=== PATIENT | male | born 1985 | race Two or more races ===

== ENCOUNTER 2025-04-01 21:44 | Emergency (ER) | payer MEDICAID, OTHER ==
[~2025-04-01] VITALS: Ht 172.7 cm; Wt 92.5 kg
--- NOTE | 2025-04-01 22:17 | ED.PDOC ---
History of Present Illness HPI Comments 39 y/o obese M presents with c/c of nonproductive cough x1 month. Chief Complaint: Cough Time Seen by MD: 22:01 Reviewed Notes: Nurses Notes, Medications, Allergies Allergies: Coded Allergies: NO KNOWN ALLERGIES (Unverified , 04/01/25) Information Source: Patient Mode of Arrival: Ambulatory Severity: Moderate Timing: Weeks Duration: Since onset Prehospital treatment: None Past Medical History PAST MEDICAL HISTORY: Denies Surgical History: Denies all surgeries Social History Smoker: Non-Smoker Alcohol: Denies ETOH Use Drugs: Denies Drug Use Lives In: Home All Other Systems: Reviewed and Negative (As per HPI) Physical Exam General Appearance: No Apparent Distress, Obese HEENT: Normal ENT Inspection, Pharynx Normal, TMs Normal Neck: Full Range of Motion, Non-Tender Respiratory: Chest Non-Tender, Decreased Breath Sounds, No Respiratory Distress Cardiovascular: No Edema, No JVD, No Murmur, No Gallop, Normal Peripheral Pulses, Regular Rate/Rhythm Breast Exam: Deferred Gastrointestinal: No Organomegaly, Non Tender, No Pulsatile Mass, Normal Bowel Sounds, Soft Genitalia: Deferred Pelvic: Deferred Rectal: Deferred Extremities: Normal capillary refill, Normal inspection, Normal range of motion, Non-tender, No pedal edema Musculoskeletal : Apperance: Normal Neurologic: Alert, No Motor Deficits, Normal Affect, Normal Mood, No Sensory Deficits Cerebellar Function: Normal Reflexes: NOT DONE Skin: Dry, Normal Color, Warm Lymphatic: No Adenopathy Was a procedure done? Was a procedure done?: No Differential Dx Considerations may include: URI, PNA, bronchitis, Covid19, viral, among others X-Ray, Labs, Meds, VS Vital Signs Date Time Temp Pulse Resp B/P (MAP) Pulse Ox O2 Delivery O2 Flow Rate FiO2 04/01/25 21:53 98.3 80 18 128/98 98 98.3 X-Ray, Labs, Meds, VS Comment Chest x-ray shows no acute cardiopulmonary findings. It is likely bronchitis. Script trial of azithromycin and steroid. Along with some cough medicine. Advised to follow up with his PCP in 2-3 days if no improvement. ER return precautions given patient indicates understanding agrees with discharge plan of care. Images Reviewed?: Images reviewed and evaluated by me Time of 1ST Reevaluation: 22:01 Reevaluation 1ST: Unchanged Time of 2ND Reevaluation: 22:48 Reevaluation 2ND: Improved Patient Education/Counseling: Diagnosis, Treatment, Need For Follow Up Family Education/Counseling: No Family Present SEPSIS Sepsis Screen Date sepsis recognized/suspect: Apr 01, 2025 Time Sepsis recognized/suspect: 2154 Recent Procedure: No On Antibiotic Therapy: No Respiratory Rate >20: No Heart Rate >90: No Temp<36 C (96.8 F) or >38.3 C: No SBP <90 or MAP <65 mmHG: No New Acute Mental Status Change: No Is the patient on CPAP, BIPAP,: No Physician Orders Chest Two Views Routine (04/01/25 22:02) Vital Signs Date Time Temp Pulse Resp B/P (MAP) Pulse Ox O2 Delivery O2 Flow Rate FiO2 04/01/25 21:53 98.3 80 18 128/98 98 98.3 Departure 1 Departure Time of Disposition: 22:46 Impression: Primary Impression: Bronchitis Disposition: 01 HOME / SELF CARE / HOMELESS Condition: Stable e-Prescriptions Methylprednisolone (Medrol Dosepak) 4 Mg Kenneth 4 MG PO UD for 6 Days, #21 TAB UAD Prov: PEPPER CHRISTOPHERP 04/01/25 Albuterol Sulfate (VENTOLIN MDI) 90 Mcg Ih 90 MCG IN Q6HP PRN for 14 Days, #1 INHALER Prov: PEPPER CHRISTOPHER 04/01/25 Azithromycin (Azithromycin) 250 Mg Tab 250 MG PO DAILY MDD 500 for 5 Days, #6 TAB 0 Refills 2 TABLETS ORALLY ON DAY ONE, THEN 1 TABLET ORALLY DAILY FOR 4 DAYS Prov: PEPPER CHRISTOPHER 04/01/25 Discharged With: Self Critical Care Note Critical Care Time?: No Stability Stability form required: No Heart Score Heart Score: Heart Score Response (Comments) Value History N/A 0 EKG N/A 0 Age N/A 0 Risk Factors N/A 0 Troponin N/A 0 Total 0 I personally scribed for ER ([email or web address]) on 04/01/25 at 22:16. Electronically submitted by Nomi Christie ([email or web address]). ER Apr 01, 2025 22:16 PEPPER CHRISTOPHER Apr 01, 2025 22:52
--- NOTE | 2025-04-01 22:20 | DVH ---
CHEST RADIOGRAPH Indication: COUGH SHORTNESS OF BREATH Technique: Frontal and lateral view of the chest was obtained Comparison: None FINDINGS: Lines and Tubes: None Lungs: Clear Pleura: No pleural effusion or pneumothorax. Cardiomediastinal contours: Unremarkable IMPRESSION: No abnormality.
[2025-04-01] MEDS ORDERED: AZIT-43 PO (22:52)
[2025-04-01] MEDS ORDERED: ALBUAER3 IN (22:52)
[2025-04-01] MEDS ORDERED: METH4PAK PO (22:52)
[2025-04-01] MEDS ORDERED: PROM1SOL4 PO (22:54)
[2025-04-01] MEDS: predniSONE 20 MG TAB PO ONE (23:14)
[2025-04-01] MEDS: PROMETHAZINE W/CODEINE 5 ML ORAL SYRUP PO ONE (23:14)
[2025-04-01 23:18] VITALS: BP 111/71; PULSE 77; RESP 18; TEMP 98.2; O2SAT 97
== END 2025-04-01 23:23 | disposition home or self-care (01) ==
LOC: ER 21:44 → EDBD 21:44 → ER 23:23
DX: J40 Bronchitis, not specified as acute or chronic (principal); Z79.899 Other long term (current) drug therapy
CPT/HCPCS: 71046

== ENCOUNTER 2025-04-10 01:31 | Emergency (ER) | payer MEDICAID ==
[~2025-04-10] VITALS: Ht 172.7 cm; Wt 91.2 kg
[~2025-04-10 01:31] MED LIST: ALBUAER3 IN; AZIT-43 PO
--- NOTE | 2025-04-10 02:12 | ED.PDOC ---
History of Present Illness HPI Comments 39-year-old male who came to ER for chest pain. Patient has been having today nonproductive cough for the past 6 weeks, states cough is nocturnal and associated with throat pain, and for the past week has been having episodes of hemoptysis. Denies any fever. Earlier he started having substernal chest pains, tight, constant, non radiating. Patient was seen last week, prescribe azithromycin, steroids and inhalers but offered no relief REVIEW OF SYSTEMS: General: No fever, no chills, or fatigue HEENT: (+) sore throat, no earache, no congestion, no neck pain. Cardiac: (+) chest pain. No palpitations. Lungs: No shortness of breath, (+) cough. (+) hemoptysis GI: No nausea, no vomiting, no diarrhea, no constipation, no abdominal pain : No dysuria, frequency, or urgency. No hematuria. Musculoskeletal: No joint pain , no joint swelling, no extremity edema. Skin: No rash, no itching. Neuro: No headache, no dizziness, no weakness EXAM: General: Awake, alert and oriented. No acute distress. Skin: Skin in warm, dry and intact. Appropriate color for ethnicity. HEENT: The head is normocephalic and atraumatic. Conjunctivae are clear without exudates or hemorrhage. Sclera is non-icteric. EOM are intact. No signs of nystagmus. Eyelids are normal in appearance without swelling or lesions. Oral mucosa is pink and moist Neck: The neck is supple with normal range of motion. No JVD. Cardiac: Heart rate and rhythm are normal. No murmurs, gallops, or rubs are auscultated. Respiratory: No signs of respiratory distress. Lung sounds are clear in all lobes bilaterally without rales, rhonchi, or wheezes. Abdominal: Abdomen is soft, non-tender without distention. Bowel sounds are present and normoactive in all four quadrants. Extremities: Upper and lower extremities are atraumatic in appearance without deformity or edema. Neurological: The patient is awake, alert and oriented to person, place, and time with normal speech. Speech is clear. There is no facial asymmetry. Psychiatric: Appropriate mood and affect. Good judgement and insight Chief Complaint: Chest Pain Time Seen by MD: 02:11 Reviewed Notes: Nurses Notes Allergies: Coded Allergies: NO KNOWN ALLERGIES (Unverified , 04/01/25) Home Meds Active Scripts Albuterol Sulfate (VENTOLIN MDI) 90 Mcg Ih, 90 MCG IN Q6HP PRN for 14 Days, #1 INHALER Prov:[facility] 04/01/25 Azithromycin (Azithromycin) 250 Mg Tab, 250 MG PO DAILY MDD 500 for 5 Days, #6 TAB 0 Refills 2 TABLETS ORALLY ON DAY ONE, THEN 1 TABLET ORALLY DAILY FOR 4 DAYS Prov:PEPPER CHRISTOPHER [facility] 04/01/25 Discontinued Scripts Promethazine-Dm (Promethazine Dm 6.25-15 mg/5Ml) 1 Aniya Aniya, 5 ML PO TID for 7 Days, #100 ML Prov:PEPPER CHRITSOPHER [facility] 04/01/25 Methylprednisolone (Medrol Dosepak) 4 Mg Kenneth, 4 MG PO UD for 6 Days, #21 TAB UAD Prov:PEPPER CHRISTOPHERP 04/01/25 Information Source: Patient Mode of Arrival: Ambulatory Past Medical History PAST MEDICAL HISTORY: Denies Surgical History: Cholecystectomy Family History Family History: Reviewed,noncontributory to illness Social History Smoker: Non-Smoker, Quit Greater Than 1 Year Alcohol: Denies ETOH Use Drugs: Denies Drug Use Lives In: Home Was a procedure done? Was a procedure done?: No EKG EKG : Pulse Rate (adult): 65 Cardiac Rhythm: NSR Differential Dx Considerations may include: Upper respiratory infection, pneumonia, bronchitis, tuberculosis X-Ray, Labs, Meds, VS Vital Signs Date Time Temp Pulse Resp B/P (MAP) Pulse Ox O2 Delivery O2 Flow Rate FiO2 04/10/25 04:01 98.0 70 14 113/80 (91) 98 98.0 04/10/25 03:30 65 04/10/25 03:27 65 04/10/25 01:34 98.3 90 16 124/91 99 98.3 Lab Test 04/10/25 02:20 Range/Units White Blood Count 7.8 4.4-10.8 10^3/uL Red Blood Count 4.90 4.5-5.90 10^6/uL Hemoglobin 14.9 13.5-17.5 g/dL Hematocrit 43.9 41.0-53.0 % Mean Corpuscular Volume 89.6 80.0-100.0 fL Mean Corpuscular Hemoglobin 30.5 28.0-32.0 pg Mean Corpuscular Hemoglobin Concent 34.1 32.0-36.0 g/dL Red Cell Distribution Width 14.5 H 11.8-14.3 % Platelet Count 172 140-450 10^3/uL Mean Platelet Volume 8.3 6.9-10.8 fL Neutrophils (%) (Auto) 69.2 37.0-80.0 % Lymphocytes (%) (Auto) 22.2 10.0-50.0 % Monocytes (%) (Auto) 7.6 0.0-12.0 % Eosinophils (%) (Auto) 0.8 0.0-7.0 % Basophils (%) (Auto) 0.2 0.0-2.0 % Neutrophils # (Auto) 5.4 1.6-8.6 10 ^3/uL Lymphocytes # (Auto) 1.7 0.4-5.4 10 ^3/uL Monocytes # (Auto) 0.6 0-1.3 10 ^3/uL Eosinophils # (Auto) 0.1 0-0.8 10 ^3/uL Basophils # (Auto) 0 0-0.2 10 ^3/uL Nucleated Red Blood Cells 0.1 % Sodium Level 139 136-145 mmol/L Potassium Level 3.7 3.5-5.1 mmol/L Chloride Level 100 98-107 mmol/L Carbon Dioxide Level 29 20-31 mmol/L Anion Gap 10 5-15 Blood Urea Nitrogen 10 9-23 mg/dL Creatinine 0.97 0.700-1.30 mg/dL Glomerular Filtration Rate Calc 102 >90 mL/min BUN/Creatinine Ratio 10.3 10.0-20.0 Serum Glucose 96 74-106 mg/dL Calcium Level 9.5 8.7-10.4 mg/dL Troponin I High Sensitivity 4 </=54 ng/L Current Medications Medications (Trade) Dose Ordered Sig/Brian Route Start Time Stop Time Status Last Admin Ketorolac Tromethamine (Toradol Injection) 30 mg ONCE ONCE IM 04/10/25 02:00 04/10/25 02:03 DC 04/10/25 02:22 Tramadol HCl (Ultram) 50 mg ONCE ONCE PO 04/10/25 02:00 04/10/25 02:03 DC 04/10/25 02:22 Acetaminophen (Tylenol Tablet) 650 mg ONCE ONCE PO 04/10/25 02:00 04/10/25 02:03 DC 04/10/25 02:22 Time of 1ST Reevaluation: 02:00 Reevaluation 1ST: Unchanged Patient Education/Counseling: Need For Follow Up Family Education/Counseling: No Family Present SEPSIS Sepsis Screen Date sepsis recognized/suspect: Apr 10, 2025 Time Sepsis recognized/suspect: 013 Recent Procedure: No On Antibiotic Therapy: No Respiratory Rate >20: No Heart Rate >90: No Temp<36 C (96.8 F) or >38.3 C: No SBP <90 or MAP <65 mmHG: No New Acute Mental Status Change: No Is the patient on CPAP, BIPAP,: No Physician Orders Electrocardigram (04/10/25 01:44) Electrocardigram (04/10/25 02:44) Electrocardigram (04/10/25 04:44) Chest Without Contrast (04/10/25 01:58) Rapid Influenza A&B (04/10/25 01:58) Covid19 Antigen Fabiana (04/10/25 ) Vital Signs Date Time Temp Pulse Resp B/P (MAP) Pulse Ox O2 Delivery O2 Flow Rate FiO2 04/10/25 04:01 98.0 70 14 113/80 (91) 98 98.0 04/10/25 03:30 65 04/10/25 03:27 65 04/10/25 01:34 98.3 90 16 124/91 99 98.3 Laboratory Tests Test 04/10/25 02:20 White Blood Count 7.8 10^3/uL (4.4-10.8) Medications Medications Dose Ordered Sig/Brian Route Start Time Stop Time Status Last Admin Dose Admin Acetaminophen 650 mg ONCE ONCE PO 04/10/25 02:00 04/10/25 02:03 DC 04/10/25 02:22 Ketorolac Tromethamine 30 mg ONCE ONCE IM 04/10/25 02:00 04/10/25 02:03 DC 04/10/25 02:22 Tramadol HCl 50 mg ONCE ONCE PO 04/10/25 02:00 04/10/25 02:03 DC 04/10/25 02:22 Departure 1 Departure Time of Disposition: 04:24 Impression: Primary Impression: Chest pain Additional Impression: Cough Disposition: 01 HOME / SELF CARE / HOMELESS Additional Instructions: ED DISCHARGE INSTRUCTIONS Instructions: Please read all instructions provided in this packet carefully. Although you have been discharged from the Emergency Department, this does not mean that you have a "clean bill of health". No definitive diagnosis for your symptoms has been made today. It is possible that you are in the process of developing a serious illness. This is why you must return to the ED without fail if any new or worsening symptoms (especially if your symptoms include chest pain, trouble breathing, abdominal pain, fever, headache, confusion, trouble seeing, or trouble walking) It is also very important that you see a primary care provider (PCP) within the next 1-3 days to follow up. If you are unable to get an appointment, return to the ED for re-evaluation. CHEST PAIN EDUCATION There are many things that can cause chest pain. Some are not serious and will get better on their own in a few days. But some kinds of chest pain need more testing and treatment. Your doctor may have recommended a follow-up visit in the next few days. If you are not getting better, you may need more tests or treatment. Even though your doctor has released you, you still need to watch for any problems. The doctor carefully checked you, but sometimes problems can develop later. If you have new symptoms or if your symptoms do not get better, get medical care right away. If you have worse or different chest pain or pressure that lasts more than 5 minutes or you passed out (lost consciousness), call 911 or seek other emergency help right away. A medical visit is only one step in your treatment. Even if you feel better, you still need to do what your doctor recommends, such as going to all suggested follow-up appointments and taking medicines exactly as directed. This will help you recover and help prevent future problems. How can you care for yourself at home? Rest until you feel better. Take your medicine exactly as prescribed. Call your doctor if you think you are having a problem with your medicine. Do not drive after taking a prescription pain medicine. When should you call for help? Call 911 if: You passed out (lost consciousness). You have severe difficulty breathing. You have symptoms of a heart attack. These may include: Chest pain or pressure, or a strange feeling in your chest. Sweating. Shortness of breath. Nausea or vomiting. Pain, pressure, or a strange feeling in your back, neck, jaw, or upper belly or in one or both shoulders or arms. Lightheadedness or sudden weakness. A fast or irregular heartbeat. After you call 911, the hemstitching machine operator may tell you to chew 1 adult-strength or 2 to 4 low-dose aspirin. Wait for an ambulance. Do not try to drive yourself. Call your doctor now or seek immediate medical care if: You have any trouble breathing. You have new or different chest pain. You are dizzy or lightheaded, or you feel like you may faint. Watch closely for changes in your health, and be sure to contact your doctor if you do not get better as expected. Current as of: December 29, 2023 Author: [employer] Staff? e-Prescriptions Benzonatate (Benzonatate) 100 Mg Cap 1-2 CAP PO Q4HR, #60 CAP Prov: ETELVINA CORTEZ MD 04/10/25 Comments MDM: 39-year-old male with cough episode of hemoptysis. Patient is well-appearing, nontoxic. Vital signs stable. Diagnostic results reviewed and are not urgently actionable. Patient is felt stable for discharge home. Patient advised to follow up with primary care provider promptly and return to the emergency department with any new, worsening or concerning symptoms. I reviewed the following notes from the pt's past medical encounters: N/A The following tests were ordered, and results were reviewed by me: (See diagnostic results section) The following test were independently interpreted by me: EKG Additional information was gathered from interviewing the following independent historians: N/A I reviewed and agreed with the following test results read by other providers: N/A I discussed treatments and results with patient Decision regarding hospitalization or escalation of hospital level of care: Risks and benefits of admission for further treatment of patient's condition was considered however due to patient's stable condition patient will be discharged to follow up closely or return to care for worsening of condition or inability to follow up. Critical Care Note Critical Care Time?: No Stability Stability form required: No Heart Score Heart Score: Heart Score Response (Comments) Value History N/A 0 EKG N/A 0 Age N/A 0 Risk Factors N/A 0 Troponin N/A 0 Total 0 I personally scribed for ETELVINA CORTEZ MD ([email or web address]) on 04/10/25 at 02:12. Electronically submitted by Eddie Anaya ([employer]). I personally scribed for ETELVINA CORTEZ MD ([email or web address]) on 04/10/25 at 03:30. Electronically submitted by Eddie Anaya ([employer]). ETELVINA CORTEZ MD Apr 10, 2025 02:12
[2025-04-10] MEDS: KETOROLAC TROMETH 30 MG/ML 1ML VIAL IM ONE (02:22)
[2025-04-10] MEDS: ACETAMINOPHEN 325 MG TAB PO ONE (02:22)
[2025-04-10 02:50] LABS: Hematocrit 43.9 % (41.0-53.0); Hemoglobin 14.9 g/dL (13.5-17.5); Mean Corpuscular Hemoglobin 30.5 pg (28.0-32.0); Mean Corpuscular Volume 89.6 fL (80.0-100.0); Nucleated Red Blood Cells % 0.1 %
[2025-04-10 02:56] LABS: Chloride 100 mmol/L (98-107); Potassium 3.7 mmol/L (3.5-5.1); Sodium 139 mmol/L (136-145)
[2025-04-10 02:57] LABS: Anion Gap 10 (5-15); Calcium 9.5 mg/dL (8.7-10.4); Carbon Dioxide 29 mmol/L (20-31)
[2025-04-10 03:02] LABS: BUN/Creatinine Ratio 10.3 (10.0-20.0); Blood Urea Nitrogen 10 mg/dL (9-23); Glucose 96 mg/dL (74-106)
[2025-04-10 04:01] VITALS: BP 113/80; PULSE 70; TEMP 98; O2SAT 98
--- NOTE | 2025-04-10 04:08 | DVH ---
Procedure: CT CHEST WITHOUT CONTRAST Reason for study/Clinical History: Cough for 6 weeks, hemoptysis Comparison Study: XY CHEST TWO VIEWS ROUTINE on DOS: 04/01/25 Exam Date: 04/10/2025 02:05 AM TECHNIQUE: Multidetector CT of the chest was performed from the lung apices to the upper abdomen without the use of intravenous contract. Axial, coronal and sagittal multiplanar reformats were performed. Radiation Dose Information: CT Dose: CTDI volume is 11.78 mGy. Dose-length product is 475.57 mGy*cm The dose indicators for CT are the volume Computed Tomography (CT) Dose Index (CTDIvol) and the Dose Length Product (DLP), and are measured in units of mGy and mGy-cm, respectively. These indicators are not patient dose, but values generated from the CT scanner acquisition factors. The report includes radiation exposure data for exposures received during this examination. FINDINGS: Lower neck: Normal thyroid. Lungs: No focal consolidation, pleural effusion or pneumothorax. Heart/Vascular Structures: Normal heart size. No pericardial effusion. Lymph Nodes: No adenopathy Pleura: No pleural effusion or significant pneumothorax. Musculoskeletal: No acute osseous abnormality. Soft tissues: Normal. Upper abdomen: Limited portions of the upper abdomen are unremarkable. Cholecystectomy IMPRESSION: 1. No acute intrathoracic abnormality. Radiation optimization: All CT scans at this facility use at least one of these dose optimization techniques: automated exposure control mA and/or kV adjustment per patient size (includes targeted exams where dose is matched to clinical indication) or iterative reconstruction.
[2025-04-10] MEDS ORDERED: BENZ100C97 PO (04:25)
[2025-04-10 04:39] VITALS: RESP 16
[2025-04-10] MEDS: guaiFENesin-CODEINE Liq 5 ML UD PO ONE (04:48)
--- NOTE | 2025-04-12 07:14 | ECG ---
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
== END 2025-04-10 04:49 | disposition home or self-care (01) ==
LOC: ER 01:31
DX: R07.9 Chest pain, unspecified (principal); R05.9 Cough, unspecified; R07.0 Pain in throat; Z90.49 Acquired absence of other specified parts of digestive tract
CPT/HCPCS: 36415; 71250; 80048; 84484; 85025; 96372; 99285; J1885; 93005